=== PATIENT | female | born 1965 | race Caucasian/White ===

== ENCOUNTER 2018-09-21 18:30 | Inpatient (IN) | payer BC ==
[~2018-09-21] VITALS: Ht 162.6 cm; Wt 65.3 kg
[2018-09-21] MEDS ORDERED: normal saline 1000ML IV soln IVB ONE (20:10)
[2018-09-21] MEDS ORDERED: CefTRIAXone 2gm/D5W 50ml 50 ML IV ONE (20:10)
[2018-09-21] MEDS ORDERED: ketorolac trometh. 30mg/ml inj. IV ONE (20:10)
[2018-09-21] MEDS ORDERED: ondansetron/PF 4mg/2ml inj IV ONE (20:10)
[2018-09-21 20:41] LABS: BASOPHILS % (AUTO) 0 % (0-1); EOSINOPHILS % (AUTO) 0.1 % (0-6); HEMATOCRIT 39.4 % (35.0-45.0); HEMOGLOBIN 12.9 g/dl (12.0-16.0); LYMPHOCYTES # (AUTO) 1.5 X10'3 (1.1-4.8); LYMPHOCYTES % (AUTO) 6.4 % (21-51); MEAN CORPUSCULAR HGB CONC 32.8 % (33.0-36.5); MEAN CORPUSCULAR VOLUME 88.3 FL (78-98); MEAN PLATELET VOLUME 7.3 FL (7.4-10.4); MONOCYTES # (AUTO) 1.3 X10'3 (0-0.9); MONOCYTES % (AUTO) 5.6 % (2-12); NEUTROPHILS # (AUTO) 20.1 X10'3 (1.8-7.7); NEUTROPHILS % (AUTO) 87.9 % (42-75); PLATELET COUNT 362 X10'3 (140-440); RED BLOOD COUNT 4.46 X10'6 (4.20-5.60); RED CELL DISTRIBUTION WIDTH 13.8 % (11.5-14.5); WHITE BLOOD COUNT 22.8 X10'3 (4.5-11.0)
[2018-09-21 20:48] LABS: INR 1.1 INR; PARTIAL THROMBOPLASTIN TIME 32 SECONDS (22-32); PROTHROMBIN TIME 11.4 SECONDS (9.0-12.0)
[2018-09-21 20:50] LABS: ALANINE AMINOTRANSFERASE 21 U/L (12-78); ALBUMIN 3.2 G/DL (3.4-5.0); ALBUMIN/GLOBULIN RATIO 0.7 (1.1-1.5); ALKALINE PHOSPHATASE 122 IU/L (46-116); ANION GAP 12 (8-16); ASPARTATE AMINO TRANSFERASE 20 U/L (10-37); BILIRUBIN,TOTAL 0.4 MG/DL (0.1-1.0); BLOOD UREA NITROGEN 15 MG/DL (7-18); BUN/CREATININE RATIO 11.7 (6.6-38.0); CALCIUM 9.1 MG/DL (8.5-10.1); CHLORIDE 99 MMOL/L (99-107); CREATININE 1.28 MG/DL (0.40-0.90); GLUCOSE 132 MG/DL (70-104); POTASSIUM 3.9 MMOL/L (3.5-5.1); SODIUM 135 MMOL/L (135-145); TOTAL CARBON DIOXIDE 24.3 MMOL/L (24-32); TOTAL PROTEIN 7.5 G/DL (6.4-8.2); eGFR 44 ML/MIN
[2018-09-21 21:21] LABS: PLATELET ESTIMATE NORMAL; TOTAL CELLS COUNTED 100
[2018-09-21 21:45] LABS: URINE HCG NEGATIVE (NEG)
[2018-09-21] MEDS ORDERED: morphine 4 MG/ML inj SYRINge IV ONE (21:55)
[2018-09-21] MEDS ORDERED: NP THYROID 120 MG (21:57)
[2018-09-21] MEDS ORDERED: TESTOSTERONE (21:57)
[2018-09-21] MEDS ORDERED: TEMAZEPAM 30 MG (21:57)
[2018-09-21] MEDS ORDERED: FOLIC ACID TAB 1MG (21:57)
[2018-09-21] MEDS ORDERED: HYDROXYCHLOROQUINE 200 MG (21:57)
[2018-09-21] MEDS ORDERED: HUMIRA (21:57)
[2018-09-21] MEDS ORDERED: CEPHALEXIN (21:57)
[2018-09-21 22:29] LABS: CLARITY,URINE SLIGHTLY CLOUDY (Clear); COLOR,URINE YELLOW (Yellow); GLUCOSE, URINE NEGATIVE (Neg); KETONES,URINE NEGATIVE (Neg); LEUKOCYTE ESTERASE ,URINE MODERATE (Neg); NITRITES, URINE NEGATIVE (Neg); OCCULT BLOOD,URINE LARGE (Neg); PH,URINE 5.5 (4.8-8.0); PROTEIN,URINE TRACE mg/dl (Neg); UROBILINOGEN,URINE 0.2 E.U/dL (0.2-1.0)
[2018-09-21 22:34] LABS: UA COLLECTION TYPE CLN CATCH MIDSTREAM
[2018-09-21 22:44] LABS: WBC,URINE 50-100 /HPF (0-4)
[2018-09-21 22:45] LABS: BACTERIA,URINE 1+ /HPF (Neg); MUCUS STRANDS FEW /LPF (Neg); SQUAMOUS EPITHELIAL CELL,UR MODERATE /LPF (FEW)
[2018-09-21] MEDS ORDERED: ondansetron/PF 4mg/2ml inj IV PRN (22:45)
[2018-09-21] MEDS ORDERED: THYR120T14 PO (23:08)
[2018-09-21] MEDS ORDERED: HYDR200T80 PO (23:08)
[2018-09-21] MEDS ORDERED: TEMA30CA5 PO (23:08)
[2018-09-21] MEDS ORDERED: FOLI1TAB16 PO (23:08)
[2018-09-21] MEDS ORDERED: ADAL40KI2 (23:08)
[2018-09-21] MEDS ORDERED: METH25VI11 SUBCUT (23:09)
[2018-09-22] VITALS (16 sets, daily range): BP systolic 92–115; BP diastolic 51–88
[2018-09-22] MEDS: normal saline 1000ml 1,000 ML IV SCH ×4 (01:38→18:35)
[2018-09-22] MEDS: temazepam 15mg capsule PO SCH ×2 (01:38→22:42)
[2018-09-22] MEDS: HYDROmorphone 1 mg/ml syringe IV PRN ×4 (04:30→21:08)
[2018-09-22 07:22] LABS: BASOPHILS % (AUTO) 0.2 % (0-1); EOSINOPHILS % (AUTO) 0.2 % (0-6); HEMATOCRIT 34.5 % (35.0-45.0); HEMOGLOBIN 11.3 g/dl (12.0-16.0); LYMPHOCYTES # (AUTO) 1.3 X10'3 (1.1-4.8); LYMPHOCYTES % (AUTO) 6.7 % (21-51); MEAN CORPUSCULAR HEMOGLOBIN 28.9 PG (27.0-31.0); MEAN CORPUSCULAR HGB CONC 32.7 % (33.0-36.5); MEAN CORPUSCULAR VOLUME 88.5 FL (78-98); MEAN PLATELET VOLUME 7.1 FL (7.4-10.4); MONOCYTES # (AUTO) 1.2 X10'3 (0-0.9); MONOCYTES % (AUTO) 5.9 % (2-12); NEUTROPHILS # (AUTO) 17.5 X10'3 (1.8-7.7); PLATELET COUNT 298 X10'3 (140-440); RED CELL DISTRIBUTION WIDTH 13.9 % (11.5-14.5); WHITE BLOOD COUNT 20.1 X10'3 (4.5-11.0)
[2018-09-22 07:37] LABS: ALANINE AMINOTRANSFERASE 17 U/L (12-78); ALBUMIN 2.4 G/DL (3.4-5.0); ALBUMIN/GLOBULIN RATIO 0.7 (1.1-1.5); ALKALINE PHOSPHATASE 92 IU/L (46-116); ANION GAP 9 (8-16); ASPARTATE AMINO TRANSFERASE 17 U/L (10-37); BILIRUBIN,TOTAL 0.2 MG/DL (0.1-1.0); BLOOD UREA NITROGEN 16 MG/DL (7-18); BUN/CREATININE RATIO 13.7 (6.6-38.0); CALCIUM 8.1 MG/DL (8.5-10.1); CHLORIDE 106 MMOL/L (99-107); CREATININE 1.17 MG/DL (0.40-0.90); GLUCOSE 105 MG/DL (70-104); POTASSIUM 3.6 MMOL/L (3.5-5.1); SODIUM 139 MMOL/L (135-145); TOTAL CARBON DIOXIDE 24.2 MMOL/L (24-32); eGFR 48 ML/MIN
[2018-09-22] MEDS: hydroxychloroquine 200mg tablet PO SCH (09:27)
[2018-09-22] MEDS: folic acid 1mg tablet PO SCH (09:27)
[2018-09-22] MEDS: thyroid, pork 30mg tablet PO SCH (09:28)
[2018-09-22] MEDS ORDERED: magnesium Cl slow-release 64mg tablet PO PRN (09:35)
[2018-09-22] MEDS ORDERED: potassium Cl 40MEQ/NS 500ml 500 ML IV PRN ×2 (09:35)
[2018-09-22] MEDS ORDERED: magnesium 4gm in 100ml NS 100 ML IV PRN (09:35)
[2018-09-22] MEDS ORDERED: potassium Cl 20 mEq SR tablet PO PRN ×2 (09:35)
[2018-09-22] MEDS ORDERED: iohexol 300 MG/1 ML 50ml polymer ONE (09:46)
[2018-09-22] MEDS ORDERED: sevoflurane 250ml liquid IH ONE (09:56)
[2018-09-22] MEDS ORDERED: ringers solution, lacted 1,000 ML IV SCH (10:01)
[2018-09-22] MEDS ORDERED: fentaNYL/PF 50MCG/1 ML 2ML syringe IV PRN ×2 (10:05)
[2018-09-22] MEDS ORDERED: hydrALAZINE 20mg/ml inj. IV PRN (10:05)
[2018-09-22] MEDS ORDERED: ondansetron/PF 4mg/2ml inj IV PRN (10:05)
[2018-09-22] MEDS ORDERED: labetalol 20mg/4ml (5mg/ml) syringe IV PRN (10:05)
[2018-09-22] MEDS ORDERED: morphine 4 MG/ML inj SYRINge IV PRN ×2 (10:05)
[2018-09-22] MEDS ORDERED: fentaNYL/PF 50MCG/1 ML 2ML syringe ONE (10:07)
[2018-09-22] MEDS ORDERED: midazolam 2 mg/2 ml injection ONE (10:08)
[2018-09-22] MEDS ORDERED: ondansetron/PF 4mg/2ml inj ONE (10:14)
[2018-09-22] MEDS ORDERED: LIDOcaine 2% (20mg/ml) 5ml vial ONE (10:14)
[2018-09-22] MEDS ORDERED: dexamethasone sod phosphate 4mg/ml inj. ONE (10:14)
[2018-09-22] MEDS ORDERED: propofol inj 20 ML IV ONE (10:14)
[2018-09-22 11:06] LABS: TOTAL CELLS COUNTED 100
[2018-09-22 11:07] LABS: PLATELET ESTIMATE NORMAL
[2018-09-22] MEDS: CefTRIAXone/D5W-Rocephin 1gm 50 ML IV SCH (20:46)
[2018-09-23] VITALS: BP 121/70
[2018-09-23] MEDS: normal saline 1000ml 1,000 ML IV SCH ×4 (01:23→21:23)
[2018-09-23 05:30] LABS: BASOPHILS % (AUTO) 0 % (0-1); EOSINOPHILS % (AUTO) 0 % (0-6); HEMATOCRIT 34.8 % (35.0-45.0); HEMOGLOBIN 11.2 g/dl (12.0-16.0); LYMPHOCYTES # (AUTO) 1.1 X10'3 (1.1-4.8); LYMPHOCYTES % (AUTO) 6.3 % (21-51); MEAN CORPUSCULAR HEMOGLOBIN 28.8 PG (27.0-31.0); MEAN CORPUSCULAR HGB CONC 32.3 % (33.0-36.5); MEAN CORPUSCULAR VOLUME 89.3 FL (78-98); MEAN PLATELET VOLUME 7.6 FL (7.4-10.4); MONOCYTES # (AUTO) 0.7 X10'3 (0-0.9); NEUTROPHILS % (AUTO) 89.7 % (42-75); PLATELET COUNT 323 X10'3 (140-440); RED BLOOD COUNT 3.89 X10'6 (4.20-5.60); RED CELL DISTRIBUTION WIDTH 13.8 % (11.5-14.5); WHITE BLOOD COUNT 17.8 X10'3 (4.5-11.0)
[2018-09-23 05:35] LABS: ALANINE AMINOTRANSFERASE 17 U/L (12-78); ALBUMIN 2.4 G/DL (3.4-5.0); ALBUMIN/GLOBULIN RATIO 0.6 (1.1-1.5); ALKALINE PHOSPHATASE 106 IU/L (46-116); ANION GAP 12 (8-16); ASPARTATE AMINO TRANSFERASE 15 U/L (10-37); BILIRUBIN,TOTAL 0.2 MG/DL (0.1-1.0); BLOOD UREA NITROGEN 14 MG/DL (7-18); BUN/CREATININE RATIO 13.3 (6.6-38.0); CALCIUM 8.5 MG/DL (8.5-10.1); CHLORIDE 107 MMOL/L (99-107); CREATININE 1.05 MG/DL (0.40-0.90); GLUCOSE 123 MG/DL (70-104); MAGNESIUM 2.2 MG/DL (1.5-2.4); PHOSPHORUS 3.2 MG/DL (2.3-4.5); POTASSIUM 3.5 MMOL/L (3.5-5.1); SODIUM 141 MMOL/L (135-145); TOTAL CARBON DIOXIDE 21.9 MMOL/L (24-32); TOTAL PROTEIN 6.6 G/DL (6.4-8.2); eGFR 55 ML/MIN
[2018-09-23 07:00] VITALS: BP 123/75
[2018-09-23] MEDS: folic acid 1mg tablet PO SCH (07:43)
[2018-09-23] MEDS: HYDROmorphone 1 mg/ml syringe IV PRN ×3 (07:43→23:36)
[2018-09-23] MEDS: thyroid, pork 30mg tablet PO SCH (07:44)
[2018-09-23] MEDS: hydroxychloroquine 200mg tablet PO SCH (07:49)
[2018-09-23 11:00] VITALS: BP 101/48
[2018-09-23 19:00] VITALS: BP 135/74
[2018-09-23] MEDS: lactobacillus rhamnosus 10,000 MMU CELLS/CAPSULE PO SCH (20:21)
[2018-09-23] MEDS: CefTRIAXone/D5W-Rocephin 1gm 50 ML IV SCH (20:35)
[2018-09-23] MEDS: temazepam 15mg capsule PO SCH (23:26)
[2018-09-24] VITALS: BP 146/83
[2018-09-24] MEDS: normal saline 1000ml 1,000 ML IV SCH ×2 (02:50→09:28)
[2018-09-24 05:16] LABS: BASOPHILS % (AUTO) 0.1 % (0-1); EOSINOPHILS % (AUTO) 0 % (0-6); HEMOGLOBIN 9.8 g/dl (12.0-16.0); LYMPHOCYTES # (AUTO) 2.4 X10'3 (1.1-4.8); LYMPHOCYTES % (AUTO) 21.9 % (21-51); MEAN CORPUSCULAR HGB CONC 32.7 % (33.0-36.5); MEAN CORPUSCULAR VOLUME 88.7 FL (78-98); MEAN PLATELET VOLUME 7.4 FL (7.4-10.4); MONOCYTES # (AUTO) 0.7 X10'3 (0-0.9); MONOCYTES % (AUTO) 6.3 % (2-12); NEUTROPHILS % (AUTO) 71.7 % (42-75); PLATELET COUNT 290 X10'3 (140-440); RED BLOOD COUNT 3.38 X10'6 (4.20-5.60); RED CELL DISTRIBUTION WIDTH 13.8 % (11.5-14.5); WHITE BLOOD COUNT 11.1 X10'3 (4.5-11.0)
[2018-09-24 05:36] LABS: ALANINE AMINOTRANSFERASE 15 U/L (12-78); ALBUMIN 2.1 G/DL (3.4-5.0); ALBUMIN/GLOBULIN RATIO 0.6 (1.1-1.5); ALKALINE PHOSPHATASE 82 IU/L (46-116); ANION GAP 10 (8-16); ASPARTATE AMINO TRANSFERASE 13 U/L (10-37); BILIRUBIN,TOTAL 0.2 MG/DL (0.1-1.0); BLOOD UREA NITROGEN 11 MG/DL (7-18); BUN/CREATININE RATIO 12.2 (6.6-38.0); CHLORIDE 111 MMOL/L (99-107); GLUCOSE 89 MG/DL (70-104); MAGNESIUM 1.7 MG/DL (1.5-2.4); PHOSPHORUS 3.8 MG/DL (2.3-4.5); POTASSIUM 3.7 MMOL/L (3.5-5.1); SODIUM 144 MMOL/L (135-145); TOTAL CARBON DIOXIDE 22.6 MMOL/L (24-32); TOTAL PROTEIN 5.5 G/DL (6.4-8.2); eGFR 65 ML/MIN
[2018-09-24] MEDS: HYDROmorphone 1 mg/ml syringe IV PRN ×3 (05:46→15:54)
[2018-09-24 08:00] VITALS: BP 120/52
[2018-09-24] MEDS: hydroxychloroquine 200mg tablet PO SCH (08:07)
[2018-09-24] MEDS: thyroid, pork 30mg tablet PO SCH (08:07)
[2018-09-24] MEDS: lactobacillus rhamnosus 10,000 MMU CELLS/CAPSULE PO SCH (08:07)
[2018-09-24] MEDS: folic acid 1mg tablet PO SCH (08:07)
[2018-09-24 11:23] VITALS: BP 120/61
[2018-09-24] MEDS ORDERED: LACT1CAP26 PO (13:59)
[2018-09-24] MEDS ORDERED: CEPH250T PO (14:02)
== END 2018-09-24 16:05 | disposition home health service (06) | DRG 854 ==
LOC: ER 18:30 → ED HOLD 22:43 → SUR 3N 09-22 12:00
PROVIDERS: ADMIT Internal Medicine; ATTEND Family Medicine
PROC: 0T778DZ Dilation of Left Ureter with Intraluminal Device, Via Natural or Artificial Opening Endoscopic (ICD-10-PCS; principal; 2018-09-22 09:56)
DX: A41.9 Sepsis, unspecified organism (principal); N13.6 Pyonephrosis; G47.00 Insomnia, unspecified; M06.9 Rheumatoid arthritis, unspecified; F32.9 Major depressive disorder, single episode, unspecified; R65.20 Severe sepsis without septic shock; Z98.84 Bariatric surgery status; Z87.442 Personal history of urinary calculi; Z87.11 Personal history of peptic ulcer disease; Z79.899 Other long term (current) drug therapy; Z91.048 Other nonmedicinal substance allergy status
CPT/HCPCS: 96365; 96375; 99285; Z7506; 36415; 74176; 76000; 80053; 81001; 81025; 83605; 83735; 84100; 84145; 85025; 85610; 85730; 87040; 87070; 87088; A4402; C1758; C1769; C2617; G0378; J0696; J1100; J1170; J1885; J2001; J2250; J2270; J2405; J2704; J3010; J7030; J7120; Q9967

== ENCOUNTER 2019-08-16 19:48 | Emergency (ER) | payer MEDICARE, BC ==
[~2019-08-16] VITALS: Ht 160 cm; Wt 56.0 kg
[~2019-08-16 19:48] MED LIST: ADAL40KI2; CEPH250T PO; FOLI1TAB16 PO; FOLIC ACID TAB 1MG; HUMIRA; HYDR200T80 PO; HYDROXYCHLOROQUINE 200 MG; LACT1CAP26 PO; METH25VI11 SUBCUT; NP THYROID 120 MG; TEMA30CA5 PO; THYR120T14 PO
[2019-08-16 20:41] LABS: CLARITY,URINE CLOUDY (Clear); COLOR,URINE YELLOW (Yellow); GLUCOSE, URINE NEGATIVE (Neg); KETONES,URINE NEGATIVE (Neg); LEUKOCYTE ESTERASE ,URINE LARGE (Neg); NITRITES, URINE POSITIVE (Neg); OCCULT BLOOD,URINE LARGE (Neg); PH,URINE 5.5 (4.8-8.0); PROTEIN,URINE 100 mg/dl (Neg); UROBILINOGEN,URINE 0.2 E.U/dL (0.2-1.0)
[2019-08-16 20:42] LABS: UA COLLECTION TYPE CLN CATCH MIDSTREAM
[2019-08-16 20:53] LABS: BACTERIA,URINE 3+ /HPF (Neg); MUCUS STRANDS NONE SEEN /LPF (Neg); SQUAMOUS EPITHELIAL CELL,UR NONE SEEN /LPF (FEW); WBC,URINE TNTC /HPF (0-4)
[2019-08-16 21:08] LABS: ALANINE AMINOTRANSFERASE 22 U/L (12-78); ALBUMIN 3.6 G/DL (3.4-5.0); ALBUMIN/GLOBULIN RATIO 0.8 (1.1-1.5); ALKALINE PHOSPHATASE 116 IU/L (46-116); ANION GAP 11 (8-16); ASPARTATE AMINO TRANSFERASE 23 U/L (10-37); BILIRUBIN,TOTAL 0.2 MG/DL (0.1-1.0); BLOOD UREA NITROGEN 17 MG/DL (7-18); BUN/CREATININE RATIO 19.8 (6.6-38.0); CALCIUM 9.1 MG/DL (8.5-10.1); CHLORIDE 102 MMOL/L (99-107); CREATININE 0.86 MG/DL (0.40-0.90); GLUCOSE 90 MG/DL (70-104); LIPASE 166 U/L (73-393); POTASSIUM 3.9 MMOL/L (3.5-5.1); SODIUM 139 MMOL/L (135-145); TOTAL CARBON DIOXIDE 25.6 MMOL/L (24-32); eGFR 69 ML/MIN
[2019-08-16] MEDS ORDERED: normal saline 1000ML IV soln IVB ONE (21:10)
[2019-08-16 21:11] LABS: BASOPHILS # (AUTO) 0.1 X10'3 (0-0.2); BASOPHILS % (AUTO) 0.6 % (0-1); EOSINOPHILS % (AUTO) 0.2 % (0-6); HEMOGLOBIN 12.2 g/dl (12.0-16.0); LYMPHOCYTES # (AUTO) 3.2 X10'3 (1.1-4.8); LYMPHOCYTES % (AUTO) 30.6 % (21-51); MEAN CORPUSCULAR HEMOGLOBIN 28.5 PG (27.0-31.0); MEAN CORPUSCULAR HGB CONC 33.1 g/dL (33.0-36.5); MEAN CORPUSCULAR VOLUME 86.3 FL (78-98); MEAN PLATELET VOLUME 7.4 FL (7.4-10.4); MONOCYTES # (AUTO) 0.9 X10'3 (0-0.9); MONOCYTES % (AUTO) 8.3 % (2-12); NEUTROPHILS # (AUTO) 6.4 X10'3 (1.8-7.7); NEUTROPHILS % (AUTO) 60.3 % (42-75); PLATELET COUNT 354 X10'3 (140-440); RED BLOOD COUNT 4.28 X10'6 (4.20-5.60); RED CELL DISTRIBUTION WIDTH 14.2 % (11.5-14.5); WHITE BLOOD COUNT 10.6 X10'3 (4.5-11.0)
[2019-08-16] MEDS ORDERED: CefTRIAXone 2gm/D5W 50ml 50 ML IV ONE (21:40)
[2019-08-16] MEDS ORDERED: ketorolac tromethamine 15mg/ml inj. IV ONE (22:40)
[2019-08-16] MEDS ORDERED: CEPH500C5 PO (22:43)
[2019-08-16] MEDS ORDERED: CEPH250S PO (22:46)
[2019-08-16 23:14] VITALS: BP 132/61
== END 2019-08-16 23:16 | disposition home or self-care (01) ==
LOC: ER 19:49
DX: R55 Syncope and collapse (principal); E86.0 Dehydration; N39.0 Urinary tract infection, site not specified; R10.11 Right upper quadrant pain; M06.9 Rheumatoid arthritis, unspecified; Z87.442 Personal history of urinary calculi; Z98.84 Bariatric surgery status; Z88.8 Allergy status to other drugs, medicaments and biological substances; Z79.899 Other long term (current) drug therapy
CPT/HCPCS: 36415; 74176; 80053; 81001; 83690; 85025; 87077; 87088; 87186; 93005; 96361; 96365; 96375; 99284; J0696; J1885; J7030

== ENCOUNTER 2020-07-28 10:40 | Emergency (ER) | payer BC, MEDICARE ==
[~2020-07-28] VITALS: Ht 162.6 cm; Wt 61.8 kg
[~2020-07-28 10:40] MED LIST changes: +CEPH250S PO; -CEPH250T PO; +CEPH500C5 PO
[2020-07-28] MEDS ORDERED: BACDS PO (12:01)
[2020-07-28 12:07] LABS: BASOPHILS % (AUTO) 0.6 % (0-1); EOSINOPHILS % (AUTO) 0.7 % (0-6); HEMATOCRIT 36.5 % (35.0-45.0); HEMOGLOBIN 11.7 g/dl (12.0-16.0); LYMPHOCYTES % (AUTO) 42.3 % (21-51); MEAN CORPUSCULAR HEMOGLOBIN 26.4 PG (27.0-31.0); MEAN CORPUSCULAR HGB CONC 31.9 g/dL (33.0-36.5); MEAN CORPUSCULAR VOLUME 82.7 FL (78-98); MEAN PLATELET VOLUME 6.9 FL (7.4-10.4); MONOCYTES # (AUTO) 0.4 X10'3 (0-0.9); MONOCYTES % (AUTO) 5.8 % (2-12); NEUTROPHILS # (AUTO) 3.6 X10'3 (1.8-7.7); NEUTROPHILS % (AUTO) 50.6 % (42-75); PLATELET COUNT 441 X10'3 (140-440); RED BLOOD COUNT 4.41 X10'6 (4.20-5.60); RED CELL DISTRIBUTION WIDTH 15.4 % (11.5-14.5); WHITE BLOOD COUNT 7.1 X10'3 (4.5-11.0)
[2020-07-28 12:19] LABS: ALANINE AMINOTRANSFERASE 32 U/L (12-78); ALBUMIN 3.8 G/DL (3.4-5.0); ALKALINE PHOSPHATASE 78 IU/L (46-116); ANION GAP 10 (8-16); ASPARTATE AMINO TRANSFERASE 17 U/L (10-37); BILIRUBIN,TOTAL 0.2 MG/DL (0.1-1.0); BLOOD UREA NITROGEN 15 MG/DL (7-18); BUN/CREATININE RATIO 18.8 (6.6-38.0); CALCIUM 8.7 MG/DL (8.5-10.1); CHLORIDE 109 MMOL/L (99-107); GLUCOSE 93 MG/DL (70-104); LIPASE 473 U/L (73-393); POTASSIUM 3.7 MMOL/L (3.5-5.1); SODIUM 143 MMOL/L (135-145); TOTAL CARBON DIOXIDE 23.9 MMOL/L (24-32); TOTAL PROTEIN 7.6 G/DL (6.4-8.2); eGFR 74 ML/MIN
[2020-07-28 12:21] LABS: CLARITY,URINE CLEAR (Clear); COLOR,URINE YELLOW (Yellow); GLUCOSE, URINE NEGATIVE (Neg); KETONES,URINE NEGATIVE (Neg); LEUKOCYTE ESTERASE ,URINE NEGATIVE (Neg); NITRITES, URINE NEGATIVE (Neg); OCCULT BLOOD,URINE TRACE-INTACT (Neg); PH,URINE 5.5 (4.8-8.0); PROTEIN,URINE NEGATIVE (Neg); UROBILINOGEN,URINE 0.2 E.U/dL (0.2-1.0)
[2020-07-28 12:28] LABS: BACTERIA,URINE NONE SEEN /HPF (Neg); RBC,URINE 0-2 /HPF (0-2); SQUAMOUS EPITHELIAL CELL,UR FEW /LPF (FEW); UA COLLECTION TYPE CLN CATCH MIDSTREAM; WBC,URINE NONE SEEN /HPF (0-4)
[2020-07-28 13:02] VITALS: BP 136/61
== END 2020-07-28 13:03 | disposition home or self-care (01) ==
LOC: ER 10:40
DX: N75.0 Cyst of Bartholin's gland (principal); M06.9 Rheumatoid arthritis, unspecified; F32.9 Major depressive disorder, single episode, unspecified; Z87.442 Personal history of urinary calculi; Z86.69 Personal history of other diseases of the nervous system and sense organs; Z90.49 Acquired absence of other specified parts of digestive tract; Z79.899 Other long term (current) drug therapy
CPT/HCPCS: 36415; 80053; 81001; 83690; 85025; 99284

== ENCOUNTER 2020-11-29 10:39 | Emergency (ER) | payer BC, MEDICARE ==
[~2020-11-29] VITALS: Ht 162.6 cm; Wt 63.6 kg
[~2020-11-29 10:39] MED LIST changes: -CEPH500C5 PO
[2020-11-29 11:33] LABS: COLOR,URINE YELLOW (Yellow); GLUCOSE, URINE NEGATIVE (Neg); KETONES,URINE NEGATIVE (Neg); LEUKOCYTE ESTERASE ,URINE SMALL (Neg); NITRITES, URINE NEGATIVE (Neg); OCCULT BLOOD,URINE SMALL (Neg); PROTEIN,URINE NEGATIVE (Neg); UROBILINOGEN,URINE 0.2 E.U/dL (0.2-1.0)
[2020-11-29 11:34] LABS: CLARITY,URINE SLIGHTLY CLOUDY (Clear); UA COLLECTION TYPE CLN CATCH MIDSTREAM
[2020-11-29 11:35] LABS: BASOPHILS % (AUTO) 0.7 % (0-1); EOSINOPHILS # (AUTO) 0.1 X10'3 (0-0.9); EOSINOPHILS % (AUTO) 0.8 % (0-6); HEMATOCRIT 42.1 % (35.0-45.0); LYMPHOCYTES # (AUTO) 2.4 X10'3 (1.1-4.8); LYMPHOCYTES % (AUTO) 37.5 % (21-51); MEAN CORPUSCULAR HEMOGLOBIN 30.7 PG (27.0-31.0); MEAN CORPUSCULAR HGB CONC 33.2 g/dL (33.0-36.5); MEAN CORPUSCULAR VOLUME 92.4 FL (78-98); MEAN PLATELET VOLUME 6.7 FL (7.4-10.4); MONOCYTES # (AUTO) 0.7 X10'3 (0-0.9); MONOCYTES % (AUTO) 10.3 % (2-12); NEUTROPHILS # (AUTO) 3.3 X10'3 (1.8-7.7); NEUTROPHILS % (AUTO) 50.7 % (42-75); PLATELET COUNT 397 X10'3 (140-440); RED BLOOD COUNT 4.55 X10'6 (4.20-5.60); RED CELL DISTRIBUTION WIDTH 13.5 % (11.5-14.5); WHITE BLOOD COUNT 6.4 X10'3 (4.5-11.0)
--- NOTE | 2020-11-29 11:40 | NUR ---
pt to ct
[2020-11-29 11:41] LABS: SQUAMOUS EPITHELIAL CELL,UR FEW /LPF (FEW)
--- NOTE | 2020-11-29 11:41 | NUR ---
PT BACK FROM CT
[2020-11-29 11:43] LABS: BACTERIA,URINE FEW /HPF (Neg)
[2020-11-29 11:44] LABS: TRANSITIONAL EPI CELLS,URINE FEW /HPF
[2020-11-29 11:49] LABS: ALANINE AMINOTRANSFERASE 25 U/L (12-78); ALBUMIN 3.6 G/DL (3.4-5.0); ALBUMIN/GLOBULIN RATIO 0.9 (1.1-1.5); ALKALINE PHOSPHATASE 107 IU/L (46-116); ANION GAP 11 (8-16); ASPARTATE AMINO TRANSFERASE 21 U/L (10-37); BILIRUBIN,TOTAL 0.4 MG/DL (0.1-1.0); BLOOD UREA NITROGEN 12 MG/DL (7-18); BUN/CREATININE RATIO 14.3 (6.6-38.0); CALCIUM 9.3 MG/DL (8.5-10.1); CHLORIDE 104 MMOL/L (99-107); CREATININE 0.84 MG/DL (0.40-0.90); GLUCOSE 71 MG/DL (70-104); POTASSIUM 3.7 MMOL/L (3.5-5.1); SODIUM 142 MMOL/L (135-145); TOTAL CARBON DIOXIDE 27.1 MMOL/L (24-32); TOTAL PROTEIN 7.8 G/DL (6.4-8.2); eGFR 70 ML/MIN
[2020-11-29] MEDS ORDERED: ondansetron/PF 4mg/2ml inj IV ONE (12:05)
[2020-11-29] MEDS ORDERED: morphine 4 MG/ML inj SYRINge IV ONE (12:05)
[2020-11-29] MEDS ORDERED: FLO0.4C PO (12:57)
[2020-11-29] MEDS ORDERED: HYDR118S10 PO (13:15)
[2020-11-29 13:54] VITALS: BP 134/73
--- NOTE | 2020-12-02 09:33 | NUR ---
PT CALLED INFORMING OF POSITIVE UTI LAB RESULTS FROM VISIT ON 11/29/20. PT REQUESTED THAT RX BE CALLED INTO [facility] ON [facility]. KEFLEX LIQUID SUSPENTION 500MG,PO,TID x 7 DAYS WAS CALLED TO [facility] PT REQUESTED.
== END 2020-11-29 13:56 | disposition home or self-care (01) ==
LOC: ER 10:40
DX: N20.1 Calculus of ureter (principal); M06.9 Rheumatoid arthritis, unspecified; Z87.440 Personal history of urinary (tract) infections; Z86.2 Personal history of diseases of the blood and blood-forming organs and certain disorders involving the immune mechanism; Z98.84 Bariatric surgery status
CPT/HCPCS: 36415; 74176; 80053; 81001; 85025; 87077; 87088; 87186; 96374; 96375; 99284; J2270; J2405

== ENCOUNTER 2022-02-27 23:32 | Inpatient (IN) | payer BC, MEDICARE ==
[~2022-02-27] VITALS: Ht 162.6 cm; Wt 56.8 kg
[~2022-02-27 23:32] MED LIST changes: -FOLI1TAB16 PO; +FOLI1TAB27 PO; +HYDR118S10 PO
[2022-02-28 00:33] LABS: WHITE BLOOD COUNT 9.4 X10'3 (4.5-11.0)
[2022-02-28 00:34] LABS: BASOPHILS # (AUTO) 0.1 X10'3 (0-0.2); BASOPHILS % (AUTO) 1.2 % (0-1); EOSINOPHILS # (AUTO) 0.1 X10'3 (0-0.9); EOSINOPHILS % (AUTO) 0.9 % (0-6); HEMATOCRIT 37.3 % (35.0-45.0); HEMOGLOBIN 12.3 g/dl (12.0-16.0); LYMPHOCYTES # (AUTO) 5.9 X10'3 (1.1-4.8); LYMPHOCYTES % (AUTO) 62.6 % (21-51); MEAN CORPUSCULAR HEMOGLOBIN 29.8 PG (27.0-31.0); MEAN CORPUSCULAR HGB CONC 33.1 g/dL (33.0-36.5); MEAN PLATELET VOLUME 6.8 FL (7.4-10.4); MONOCYTES # (AUTO) 0.6 X10'3 (0-0.9); MONOCYTES % (AUTO) 6.4 % (2-12); NEUTROPHILS # (AUTO) 2.7 X10'3 (1.8-7.7); NEUTROPHILS % (AUTO) 28.9 % (42-75); PLATELET COUNT 443 X10'3 (140-440); RED BLOOD COUNT 4.14 X10'6 (4.20-5.60)
[2022-02-28] MEDS ORDERED: proCHLORperazine 10 MG/2 ml inj IV ONE (00:35)
[2022-02-28] MEDS ORDERED: normal saline 1000ML IV soln IVB ONE (00:35)
[2022-02-28] MEDS ORDERED: pantoprazole 40 MG vial IV ONE (00:35)
[2022-02-28] MEDS: morphine 2 MG/ML inj. syringe IV PRN ×10 (00:37→20:46)
[2022-02-28 00:52] LABS: ALANINE AMINOTRANSFERASE 17 U/L (12-78); ALBUMIN 3.7 G/DL (3.4-5.0); ALBUMIN/GLOBULIN RATIO 1.1 (1.1-1.5); ALKALINE PHOSPHATASE 109 IU/L (46-116); ANION GAP 14 (8-16); ASPARTATE AMINO TRANSFERASE 19 U/L (10-37); BILIRUBIN,TOTAL 0.4 MG/DL (0.1-1.0); BLOOD UREA NITROGEN 19 MG/DL (7-18); BUN/CREATININE RATIO 20.4 (6.6-38.0); CALCIUM 8.8 MG/DL (8.5-10.1); CHLORIDE 107 MMOL/L (99-107); CREATININE 0.93 MG/DL (0.40-0.90); GLUCOSE 138 MG/DL (70-104); LIPASE 139 U/L (73-393); POTASSIUM 3.3 MMOL/L (3.5-5.1); SODIUM 142 MMOL/L (135-145); TOTAL CARBON DIOXIDE 21.1 MMOL/L (24-32); TOTAL PROTEIN 7.1 G/DL (6.4-8.2); eGFR 62 ML/MIN
[2022-02-28 00:55] LABS: PLATELET ESTIMATE INCREASED; TOTAL CELLS COUNTED 100
--- NOTE | 2022-02-28 01:32 | NUR ---
PT TO CT
[2022-02-28 02:56] LABS: CLARITY,URINE CLEAR (Clear); GLUCOSE, URINE NEGATIVE (Neg); KETONES,URINE NEGATIVE (Neg); LEUKOCYTE ESTERASE ,URINE NEGATIVE (Neg); NITRITES, URINE NEGATIVE (Neg); OCCULT BLOOD,URINE MODERATE (Neg); PH,URINE 5.5 (4.8-8.0); PROTEIN,URINE NEGATIVE (Neg); UROBILINOGEN,URINE 0.2 E.U/dL (0.2-1.0)
[2022-02-28 02:57] LABS: URINE HCG NEGATIVE (NEG)
[2022-02-28 02:58] LABS: COLOR,URINE STRAW (Yellow); UA COLLECTION TYPE NON-SPECIFIED
[2022-02-28 03:06] LABS: BACTERIA,URINE NONE SEEN /HPF (Neg); MUCUS STRANDS NONE SEEN /LPF (Neg); SQUAMOUS EPITHELIAL CELL,UR NONE SEEN /LPF (FEW); WBC,URINE NONE SEEN /HPF (0-4)
[2022-02-28] MEDS: tamsulosin 0.4mg capsule PO SCH (05:35)
[2022-02-28] MEDS ORDERED: mag hydrox/Alum hydrox/simeth 30ml oral suspension PO PRN (06:20)
[2022-02-28] MEDS ORDERED: acetaminophen 650mg rectal suppository RC PRN (06:20)
[2022-02-28] MEDS ORDERED: ondansetron/PF 4mg/2ml inj IV PRN (06:20)
[2022-02-28] MEDS ORDERED: diphenhydrAMINE 50 mg/ml inj IV PRN (06:20)
[2022-02-28] MEDS ORDERED: bisacodyl 10mg suppository rectal RC PRN (06:20)
[2022-02-28] MEDS ORDERED: morphine 2 MG/ML inj. syringe IV PRN ×2 (06:20)
[2022-02-28] MEDS ORDERED: magnesium hydroxide 30ml (MOM) UD suspension PO PRN (06:20)
[2022-02-28] MEDS ORDERED: HYDROmorphone inj. 0.5 MG/0.5 ML DISP.SYRIN IV PRN (06:20)
[2022-02-28] MEDS ORDERED: diphenhydrAMINE 25mg capsule PO PRN (06:20)
[2022-02-28] MEDS ORDERED: HYDROcodone/acetaminophen 5mg/325mg tablet PO PRN (06:20)
[2022-02-28] MEDS ORDERED: ondansetron 4mg rapidly disintigrating tab PO PRN (06:20)
[2022-02-28] MEDS ORDERED: acetaminophen 325mg tablet PO PRN ×2 (06:20)
[2022-02-28] MEDS ORDERED: potassium Cl 20 mEq SR tablet PO PRN (06:25)
[2022-02-28] MEDS ORDERED: potassium CL 10mEq/100ml bag 100 ML IV PRN (06:25)
[2022-02-28] MEDS ORDERED: magnesium 4gm in 100ml NS 100 ML IV PRN (06:25)
[2022-02-28] MEDS ORDERED: magnesium Cl slow-release 64mg tablet PO PRN (06:25)
[2022-02-28] MEDS: cefTRIAXone 1g/NS 100ml IVPB 100 ML IV SCH (07:51)
[2022-02-28] MEDS: potassium Cl 20 mEq SR tablet PO PRN ×2 (07:52→13:59)
[2022-02-28] MEDS: docusate sod 100mg capsule PO SCH ×2 (07:52→20:00)
[2022-02-28] MEDS: pantoprazole 40mg Tablet.DR PO SCH (07:52)
[2022-02-28] MEDS: normal saline 1000ml 1,000 ML IV SCH ×3 (07:53→22:48)
[2022-02-28] MEDS: K and/or MAG REPLACEMENT MC SCH ×2 (07:53→20:00)
[2022-02-28 08:10] LABS: MAGNESIUM 1.9 MG/DL (1.5-2.4); PHOSPHORUS 4.6 MG/DL (2.3-4.5); POTASSIUM 4.1 MMOL/L (3.5-5.1)
[2022-02-28] MEDS: HYDROcodone/acetaminophen 10/325mg tab PO PRN ×3 (09:16→20:45)
[2022-02-28] MEDS ORDERED: iohexol 350MG/ML 100ml bottle IV ONE (11:00)
[2022-02-28] MEDS ORDERED: MED LIST UNOBTAINABL (14:12)
[2022-02-28] MEDS ORDERED: THYR120T14 PO (14:14)
[2022-02-28] MEDS ORDERED: TYPE IN GENERIC & BRAND NAME OF PATIENT MED STRENGTH & FORM PO PRN (14:25)
--- NOTE | 2022-02-28 18:20 | NUR ---
PAGE TO DR. RIBEIRO SENT PAGER ID: [phone] MESSAGE: ER BED #12 LEONE. PATIENT IS TOLERATING CLEAR LIQUIDS WELL AND WOULD LIKE DIET INCREASED IF POSSIBLE. PATIENT IS WONDERING WHAT THE PLAN IS FOR HER TREATMENT. THANKS, JOSELO [id number]
--- NOTE | 2022-02-28 18:41 | NUR ---
ASSUMED CARE OF PT. PT SITTING UP EATING CLEAR LIQUID DIET.
[2022-02-28] MEDS ORDERED: temazepam 15mg capsule PO PRN (21:00)
[2022-02-28] MEDS ORDERED: temazepam 15mg capsule PO SCH (21:00)
--- NOTE | 2022-02-28 21:45 | NUR ---
Patient in room ORTHO 4009. I have received report from [facility] and had the opportunity to ask questions and assume patient care. Addendum: 03/01/22 at 0017 by Arabella Wilkins RN Amended: Links added.
--- NOTE | 2022-02-28 21:50 | NUR ---
Pt. arrived on the floor via w/c accompanied by ED Nurse Aide. Settled pt. in bed. Pt A & O X 4 at this time,denies c/o n/v at this time, pain /10- been medicated recently in the ED before discharge to the floor. Call light within reach and bed in low position. Addendum: 03/01/22 at 0023 by Arabella Wilkins RN Amended: Links added.
[2022-02-28 22:00] VITALS: BP 109/56
[2022-03-01] MEDS: HYDROcodone/acetaminophen 10/325mg tab PO PRN ×3 (03:06→12:37)
--- NOTE | 2022-03-01 05:00 | NUR ---
Pt. slept few hours with c/o pain x 2 medicated. No c/o pain on voiding this shift- hat in the bathroom with the strainer to strain urine to detect possible stone pass; pt. aware. Call light within reach. Addendum: 03/01/22 at 0635 by Arabella Wilkins RN Amended: Links added.
[2022-03-01] MEDS: tamsulosin 0.4mg capsule PO SCH (05:47)
[2022-03-01 06:00] VITALS: BP 117/60
[2022-03-01 06:02] LABS: EOSINOPHILS # (AUTO) 0.1 X10'3 (0-0.9); MEAN PLATELET VOLUME 6.8 FL (7.4-10.4); MONOCYTES # (AUTO) 0.4 X10'3 (0-0.9); NEUTROPHILS # (AUTO) 1.4 X10'3 (1.8-7.7); RED BLOOD COUNT 3.89 X10'6 (4.20-5.60); WHITE BLOOD COUNT 5.4 X10'3 (4.5-11.0)
[2022-03-01 06:04] LABS: BASOPHILS % (AUTO) 0.5 % (0-1); EOSINOPHILS % (AUTO) 0.9 % (0-6); HEMATOCRIT 35.1 % (35.0-45.0); HEMOGLOBIN 11.6 g/dl (12.0-16.0); LYMPHOCYTES # (AUTO) 3.5 X10'3 (1.1-4.8); LYMPHOCYTES % (AUTO) 64.5 % (21-51); MEAN CORPUSCULAR HEMOGLOBIN 29.8 PG (27.0-31.0); MEAN CORPUSCULAR VOLUME 90.4 FL (78-98); MONOCYTES % (AUTO) 7.9 % (2-12); NEUTROPHILS % (AUTO) 26.2 % (42-75); PLATELET COUNT 336 X10'3 (140-440); RED CELL DISTRIBUTION WIDTH 14.1 % (11.5-14.5)
[2022-03-01 06:17] LABS: ALANINE AMINOTRANSFERASE 18 U/L (12-78); ALBUMIN/GLOBULIN RATIO 0.9 (1.1-1.5); ALKALINE PHOSPHATASE 92 IU/L (46-116); ANION GAP 3 (8-16); ASPARTATE AMINO TRANSFERASE 22 U/L (10-37); BILIRUBIN,TOTAL 0.5 MG/DL (0.1-1.0); BLOOD UREA NITROGEN 10 MG/DL (7-18); BUN/CREATININE RATIO 11.6 (6.6-38.0); CALCIUM 8.3 MG/DL (8.5-10.1); CHLORIDE 111 MMOL/L (99-107); CREATININE 0.86 MG/DL (0.40-0.90); GLUCOSE 91 MG/DL (70-104); SODIUM 142 MMOL/L (135-145); TOTAL CARBON DIOXIDE 27.7 MMOL/L (24-32); TOTAL PROTEIN 6.2 G/DL (6.4-8.2); eGFR 68 ML/MIN
--- NOTE | 2022-03-01 06:25 | NUR ---
Problems reprioritized. Patient report given, questions answered & plan of care reviewed with Becka [facility]. Addendum: 03/01/22 at 0627 by Arabella Wilkins RN Amended: Links added.
[2022-03-01 07:55] LABS: PLATELET ESTIMATE NORMAL; TOTAL CELLS COUNTED 100
[2022-03-01] MEDS ORDERED: hydroxychloroquine 200mg tablet PO SCH (08:00)
[2022-03-01] MEDS ORDERED: [UNRECOGNIZED DRUG - OTHER] SCH (08:00)
[2022-03-01] MEDS ORDERED: thyroid, pork 30mg tablet PO SCH (08:00)
[2022-03-01] MEDS: cefTRIAXone 1g/NS 100ml IVPB 100 ML IV SCH (08:49)
[2022-03-01] MEDS: normal saline 1000ml 1,000 ML IV SCH (08:49)
[2022-03-01] MEDS: pantoprazole 40mg Tablet.DR PO SCH (08:53)
[2022-03-01 10:00] VITALS: BP 105/56
[2022-03-01] MEDS: docusate sod 100mg capsule PO SCH (10:20)
[2022-03-01] MEDS ORDERED: FLO0.4C PO (10:53)
[2022-03-01] MEDS ORDERED: HYDR118S10 PO ×3 (12:38→14:26)
--- NOTE | 2022-03-01 13:00 | NUR ---
pt discharged to home, with all belongings, in private vehicle, accompanied by . Discharge instructions and medications reviewed. New prescriptions sent to [facility]. Pt instructed to follow up with PCP in 1-2 weeks, and to return to ED if symptoms return. Pt states understanding and willingness to comply with discharge instructions. IV DC'd, cannula intact. Pt escorted to front lobby by primary RN.
[2022-03-03] MEDS ORDERED: TYPE IN GENERIC & BRAND NAME OF PATIENT MED STRENGTH & FORM SQ SCH (14:25)
== END 2022-03-01 12:50 | disposition home or self-care (01) | DRG 694 ==
LOC: ER 23:33 → ED HOLD 02-28 06:23 → ORTHO 4S 02-28 21:50
PROVIDERS: ADMIT Family Medicine; ATTEND Family Medicine
PROC: BW211ZZ Computerized Tomography (CT Scan) of Abdomen and Pelvis using Low Osmolar Contrast (ICD-10-PCS; principal; 2022-02-28)
DX: N13.2 Hydronephrosis with renal and ureteral calculous obstruction (principal); D63.8 Anemia in other chronic diseases classified elsewhere; E03.9 Hypothyroidism, unspecified; E87.6 Hypokalemia; I12.9 Hypertensive chronic kidney disease with stage 1 through stage 4 chronic kidney disease, or unspecified chronic kidney disease; K76.0 Fatty (change of) liver, not elsewhere classified; M06.9 Rheumatoid arthritis, unspecified; K57.90 Diverticulosis of intestine, part unspecified, without perforation or abscess without bleeding; N17.9 Acute kidney failure, unspecified; F32.A Depression, unspecified; N18.9 Chronic kidney disease, unspecified; Z79.899 Other long term (current) drug therapy; Z87.442 Personal history of urinary calculi; Z98.84 Bariatric surgery status; Z88.8 Allergy status to other drugs, medicaments and biological substances
CPT/HCPCS: 36415; 74018; 74177; 80053; 81001; 81025; 83690; 83735; 83880; 84100; 84132; 85007; 85025; 87081; 99285; C9113; G0378; J0696; J0780; J1170; J2270; J7030; Q9967

== ENCOUNTER 2023-11-22 13:07 | Observation (INO) | payer BC, MEDICARE ==
[~2023-11-22] VITALS: Ht 165.1 cm; Wt 62.7 kg
[~2023-11-22 13:07] MED LIST changes: -CEPH250S PO; -FOLI1TAB27 PO; -FOLIC ACID TAB 1MG; -HUMIRA; -HYDROXYCHLOROQUINE 200 MG; -LACT1CAP26 PO; +MED LIST UNOBTAINABL; -NP THYROID 120 MG
[2023-11-22] MEDS ORDERED: iohexol 350MG/ML 100ml bottle IV ONE ×2 (13:16→18:54)
[2023-11-22 13:30] LABS: BASOPHILS % (AUTO) 0.6 % (0-1); EOSINOPHILS % (AUTO) 0.5 % (0-6); HEMATOCRIT 42.2 % (35.0-45.0); HEMOGLOBIN 13.7 g/dl (12.0-16.0); LYMPHOCYTES # (AUTO) 3.4 X10'3 (1.1-4.8); LYMPHOCYTES % (AUTO) 45.9 % (21-51); MEAN CORPUSCULAR HEMOGLOBIN 29.3 PG (27.0-31.0); MEAN CORPUSCULAR HGB CONC 32.5 g/dL (33.0-36.5); MEAN CORPUSCULAR VOLUME 90.1 FL (78-98); MEAN PLATELET VOLUME 6.8 FL (7.4-10.4); MONOCYTES # (AUTO) 0.5 X10'3 (0-0.9); MONOCYTES % (AUTO) 6.9 % (2-12); NEUTROPHILS # (AUTO) 3.5 X10'3 (1.8-7.7); NEUTROPHILS % (AUTO) 46.1 % (42-75); PLATELET COUNT 421 X10'3 (140-440); RED BLOOD COUNT 4.68 X10'6 (4.20-5.60); RED CELL DISTRIBUTION WIDTH 13.1 % (11.5-14.5); WHITE BLOOD COUNT 7.5 X10'3 (4.5-11.0)
[2023-11-22 13:38] LABS: ALBUMIN 3.3 G/DL (3.4-5.0); ANION GAP 9 (8-16); BLOOD UREA NITROGEN 11 MG/DL (7-18); BUN/CREATININE RATIO 13.3 (10.0-20.0); CALCIUM 8.5 MG/DL (8.5-10.1); CHLORIDE 111 MMOL/L (99-107); CREATININE 0.83 MG/DL (0.40-0.90); GLUCOSE 95 MG/DL (70-104); POTASSIUM 3.5 MMOL/L (3.5-5.1); SODIUM 143 MMOL/L (135-145); TOTAL CARBON DIOXIDE 23.3 MMOL/L (24-32); eCRCL 66 ML/MIN; eGFR 71 ML/MIN
[2023-11-22 13:42] LABS: APTT 27 SECONDS (22-32); PROTHROMBIN TIME 10.9 SECONDS (9.0-12.0)
[2023-11-22] MEDS: aspirin 81mg tab.chew PO ONE (16:53)
[2023-11-22] MEDS: HYDROmorphone inj. 0.5 MG/0.5 ML DISP.SYRIN IV ONE (17:02)
[2023-11-22 17:48] LABS: BILIRUBIN,URINE NEGATIVE (Neg); CLARITY,URINE CLEAR (Clear); COLOR,URINE YELLOW (Yellow); GLUCOSE, URINE NEGATIVE (Neg); KETONES,URINE NEGATIVE (Neg); LEUKOCYTE ESTERASE ,URINE NEGATIVE (Neg); NITRITES, URINE NEGATIVE (Neg); OCCULT BLOOD,URINE TRACE-INTACT (Neg); PROTEIN,URINE NEGATIVE (Neg); UROBILINOGEN,URINE 0.2 E.U/dL (0.2-1.0)
[2023-11-22 17:51] LABS: UA COLLECTION TYPE NON-SPECIFIED
[2023-11-22 17:56] LABS: BACTERIA,URINE NONE SEEN /HPF (Neg); MUCUS STRANDS FEW /LPF (Neg); RBC,URINE 0-2 /HPF (0-2); SQUAMOUS EPITHELIAL CELL,UR FEW /LPF (FEW); WBC,URINE 0-4 /HPF (0-4); YEAST FEW /HPF (NEGATIVE)
[2023-11-22] MEDS: ondansetron/PF 4mg/2ml inj IV ONE (17:58)
[2023-11-22] MEDS ORDERED: LIOT5TAB10 PO (18:57)
[2023-11-22] MEDS: acetaminophen 1,000mg/100ml IV 100 ML IV ONE (20:16)
[2023-11-22] MEDS ORDERED: temazepam 15mg capsule PO PRN (21:00)
[2023-11-22] MEDS ORDERED: ondansetron/PF 4mg/2ml inj IV PRN ×2 (21:05→21:55)
[2023-11-22] MEDS ORDERED: magnesium hydroxide 30ml (MOM) UD suspension PO PRN (21:55)
[2023-11-22] MEDS ORDERED: acetaminophen 325mg tablet PO PRN (21:55)
[2023-11-22] MEDS ORDERED: morphine 2 MG/ML inj. syringe IV PRN (21:55)
[2023-11-22] MEDS ORDERED: acetaminophen 650mg rectal suppository RC PRN (21:55)
[2023-11-22] MEDS ORDERED: diphenhydrAMINE 25mg capsule PO PRN (21:55)
[2023-11-22] MEDS ORDERED: diphenhydrAMINE 50 mg/ml inj IV PRN (21:55)
[2023-11-22] MEDS ORDERED: mag hydrox/Alum hydrox/simeth 30ml oral suspension PO PRN (21:55)
[2023-11-22] MEDS ORDERED: HYDROcodone/acetaminophen 5mg/325mg tablet PO PRN (21:55)
[2023-11-22] MEDS ORDERED: bisacodyl 10mg suppository rectal RC PRN (21:55)
[2023-11-22] MEDS ORDERED: ondansetron 4mg rapidly disintigrating tab PO PRN (21:55)
[2023-11-22] MEDS ORDERED: HYDROcodone/acetaminophen 10/325mg tab PO PRN (21:55)
[2023-11-22 22:10] VITALS: BP 138/70; PULSE 73; RESP 20; TEMP 98.1; O2SAT 99
[2023-11-22] MEDS: normal saline 1000ml 1,000 ML IV SCH (22:21)
[2023-11-22] MEDS: clopidogrel 75mg tablet PO SCH (22:23)
[2023-11-22 22:27] LABS: HEMOGLOBIN A1C 5.3 % (4.5-6.2)
[2023-11-22 22:29] LABS: APTT 26 SECONDS (22-32); PROTHROMBIN TIME 10.9 SECONDS (9.0-12.0)
[2023-11-22 22:33] LABS: MAGNESIUM 2.4 MG/DL (1.5-2.4); PHOSPHORUS 3.6 MG/DL (2.3-4.5); PRO BRAIN NATRIURETIC PEPTIDE 57 PG/ML (0-125)
[2023-11-22] MEDS: acetaminophen 325mg tablet PO PRN (22:33)
[2023-11-23] VITALS: BP 106/60; PULSE 74; RESP 15; TEMP 97.7; O2SAT 98
[2023-11-23 02:16] VITALS: BP 106/60; PULSE 74; RESP 15; TEMP 97.7; O2SAT 98
[2023-11-23 04:00] VITALS: BP 127/63; PULSE 73; RESP 13; TEMP 98.1; O2SAT 98
[2023-11-23 06:55] LABS: BASOPHILS % (AUTO) 0.5 % (0-1); EOSINOPHILS % (AUTO) 0.7 % (0-6); HEMATOCRIT 39.8 % (35.0-45.0); HEMOGLOBIN 13.1 g/dl (12.0-16.0); LYMPHOCYTES # (AUTO) 3.4 X10'3 (1.1-4.8); LYMPHOCYTES % (AUTO) 56.6 % (21-51); MEAN CORPUSCULAR HEMOGLOBIN 29.7 PG (27.0-31.0); MEAN CORPUSCULAR VOLUME 89.9 FL (78-98); MONOCYTES # (AUTO) 0.4 X10'3 (0-0.9); MONOCYTES % (AUTO) 7.1 % (2-12); NEUTROPHILS # (AUTO) 2.1 X10'3 (1.8-7.7); NEUTROPHILS % (AUTO) 35.1 % (42-75); PLATELET COUNT 353 X10'3 (140-440); RED BLOOD COUNT 4.43 X10'6 (4.20-5.60); RED CELL DISTRIBUTION WIDTH 13.2 % (11.5-14.5); WHITE BLOOD COUNT 6.1 X10'3 (4.5-11.0)
[2023-11-23] MEDS: clopidogrel 75mg tablet PO SCH (06:55)
[2023-11-23 07:25] LABS: ALANINE AMINOTRANSFERASE 15 U/L (12-78); ALBUMIN 3.1 G/DL (3.4-5.0); ALBUMIN/GLOBULIN RATIO 0.9 (1.1-1.5); ALKALINE PHOSPHATASE 70 IU/L (46-116); ANION GAP 11 (8-16); ASPARTATE AMINO TRANSFERASE 17 U/L (10-37); BILIRUBIN,TOTAL 0.4 MG/DL (0.1-1.0); BLOOD UREA NITROGEN 8 MG/DL (7-18); BUN/CREATININE RATIO 9.9 (10.0-20.0); CALCIUM 8.1 MG/DL (8.5-10.1); CHLORIDE 112 MMOL/L (99-107); CHOL/HDL RATIO 2.6 (0.00-4.99); CHOLESTEROL 135 MG/DL (0-200); CREATININE 0.81 MG/DL (0.40-0.90); GLUCOSE 78 MG/DL (70-104); HDL CHOLESTEROL 51 MG/DL (35-60); LDL CHOLESTEROL 71 MG/DL (50-100); POTASSIUM 3.3 MMOL/L (3.5-5.1); SODIUM 144 MMOL/L (135-145); TOTAL CARBON DIOXIDE 21.3 MMOL/L (24-32); TOTAL PROTEIN 6.5 G/DL (6.4-8.2); TRIGLYCERIDES 89 MG/DL (20-135); eCRCL 68 ML/MIN; eGFR 73 ML/MIN
[2023-11-23] MEDS: atorvastatin 20mg tablet PO SCH (07:57)
[2023-11-23] MEDS: pantoprazole 40mg Tablet.DR PO SCH (07:57)
[2023-11-23] MEDS: docusate sod 100mg capsule PO SCH (08:00)
[2023-11-23] MEDS ORDERED: magnesium 2GM in 50ml NS 50 ML IV PRN (08:10)
[2023-11-23] MEDS ORDERED: potassium Cl 40MEQ/1/2NS 520ml 520 ML IV PRN (08:10)
[2023-11-23] MEDS ORDERED: potassium Cl 20 mEq SR tablet PO PRN (08:10)
[2023-11-23] MEDS ORDERED: magnesium Cl slow-release 64mg tablet PO PRN (08:10)
[2023-11-23] MEDS ORDERED: magnesium 4gm in 100ml NS 100 ML IV PRN (08:10)
[2023-11-23 08:22] LABS: TOTAL CELLS COUNTED 100
[2023-11-23 08:23] LABS: PLATELET ESTIMATE NORMAL
[2023-11-23 08:32] LABS: MAGNESIUM 2.1 MG/DL (1.5-2.4)
[2023-11-23] MEDS: aspirin 81mg tab.chew PO SCH (09:16)
[2023-11-23] MEDS: potassium Cl 20 mEq SR tablet PO PRN (09:16)
[2023-11-23 09:45] VITALS: BP 134/70; PULSE 80; RESP 15; TEMP 98.4; O2SAT 98
[2023-11-23] MEDS ORDERED: ASPI81TA53 PO (15:43)
[2023-11-23] MEDS ORDERED: ATOR20TA66 PO (15:43)
[2023-11-23] MEDS ORDERED: CLOP75TA34 PO (15:43)
[2023-11-23] MEDS ORDERED: K and/or MAG REPLACEMENT MC SCH (20:00)
== END 2023-11-23 17:10 | disposition home or self-care (01) ==
LOC: ER 13:08 → ED HOLD 21:11 → EDBEDREQ 21:34 → ORTHO 4S 22:10
PROVIDERS: ADMIT Internal Medicine; ATTEND Internal Medicine
DX: I63.9 Cerebral infarction, unspecified (principal); M06.9 Rheumatoid arthritis, unspecified; E03.9 Hypothyroidism, unspecified; D64.9 Anemia, unspecified; Z87.442 Personal history of urinary calculi; Z98.84 Bariatric surgery status; Z79.899 Other long term (current) drug therapy
CPT/HCPCS: 36415; 70450; 70496; 70498; 70551; 71045; 80048; 80053; 80061; 81001; 82948; 83036; 83735; 83880; 84100; 85025; 85379; 85610; 85730; 86885; 86900; 86901; 87081; 92508; 92616; 93005; 93306; 96361; 96374; 96375; 97116; 97161; 97530; 99285; G0378; J0131; J1170; J2405; J3490; J7030; Q9967; 85007

== ENCOUNTER 2023-11-27 06:35 | Emergency (ER) | payer BC, MEDICARE ==
[~2023-11-27] VITALS: Ht 162.6 cm; Wt 63.7 kg
[~2023-11-27 06:35] MED LIST changes: -ADAL40KI2; +ASPI81TA53 PO; +ATOR20TA66 PO; +CLOP75TA34 PO; -HYDR118S10 PO; +LIOT5TAB10 PO; -MED LIST UNOBTAINABL; -THYR120T14 PO
[2023-11-27 06:49] VITALS: TEMP 97.2
[2023-11-27] MEDS ORDERED: SULF1TAB49 PO (09:03)
[2023-11-27] MEDS ORDERED: PRED15SO71 PO (09:03)
[2023-11-27] MEDS ORDERED: CEPH250S PO (09:03)
[2023-11-27] MEDS ORDERED: DIPH-423 PO (09:03)
[2023-11-27 09:57] VITALS: BP 129/79; PULSE 78; RESP 16; O2SAT 100
== END 2023-11-27 10:00 | disposition home or self-care (01) ==
LOC: ER 06:36
DX: R21 Rash and other nonspecific skin eruption (principal); L73.9 Follicular disorder, unspecified; Z88.8 Allergy status to other drugs, medicaments and biological substances; Z91.041 Radiographic dye allergy status; Z79.82 Long term (current) use of aspirin; Z79.2 Long term (current) use of antibiotics; Z79.899 Other long term (current) drug therapy
CPT/HCPCS: 99283